=== PATIENT | female | born 2000 | race Caucasian/White ===

== ENCOUNTER 2020-07-21 22:03 | Emergency (ER) | payer OTHER, SELFPAY ==
--- NOTE | ~2020-07-21 | XR_ITS ---
EXAMINATIONS: FINGER 3 VIEWS, LEFT AND LEFT HAND AND WRIST 3 VIEWS CLINICAL INFORMATION: [facility] COMPARISON: None. TECHNIQUE: A PA view of the left hand is provided along with two views of the fourth digit. PA, lateral, oblique views of the left hand and wrist are provided. FINDINGS: There is mild soft tissue swelling to the fourth digit. There are no fractures or dislocations. The proximal carpal row is intact. XR/XR finger LT min 2V IMPRESSION: Mild soft tissue swelling to the fourth digit. No fracture or dislocation demonstrable.
--- NOTE | ~2020-07-21 | XR_ITS ---
EXAMINATIONS: FINGER 3 VIEWS, LEFT AND LEFT HAND AND WRIST 3 VIEWS CLINICAL INFORMATION: [facility] [place] COMPARISON: None. TECHNIQUE: A PA view of the left hand is provided along with two views of the fourth digit. PA, lateral, oblique views of the left hand and wrist are provided. FINDINGS: There is mild soft tissue swelling to the fourth digit. There are no fractures or dislocations. The proximal carpal row is intact. XR/XR hand wrist LT IMPRESSION: Mild soft tissue swelling to the fourth digit. No fracture or dislocation demonstrable.
[2020-07-21 22:07] VITALS: BP 132/83; PULSE 86; RESP 18; TEMP 36.7; O2SAT 99; BMI 40.1
[2020-07-21 23:52] VITALS: BP 124/77; PULSE 98; RESP 16; O2SAT 98
--- NOTE | 2020-07-22 01:11 | ED.WOUNDLAC ---
HPI - Wound/Laceration General Chief Complaint: Wound/Laceration Stated Complaint: FINGER INJ Time Seen by Provider: 07/21/20 23:52 Source: patient Mode of arrival: ambulatory Limitations: no limitations History of Present Illness HPI narrative: Left finger laceration. Patient states she was cutting with the knife in her kitchen and accidently cut herself. patient denies any other trauma. patient has complete range of motion of finger Related Data Allergies Allergy/AdvReac Type Severity Reaction Status Date / Time bve [BEV] Allergy Unknown UNKNOWN Verified 07/21/20 22:07 Review of Systems Review of Systems: Yes all other systems are reviewed and are negative Constitutional: Constitutional: Reports as per HPI and Reports no additional constitutional complaints Eyes: Eyes: Reports as per HPI and Reports no additional eye complaints ENT: Reports system reviewed and no additional complaints, except as documented and Reports as per HPI Cardiovascular: Cardiovascular: Reports as per HPI and Reports no additional cardiovascular complaints Respiratory: Respiratory: Reports as per HPI and Reports no additional respiratory complaints Gastrointestinal: Gastrointestinal: Reports as per HPI and Reports no additional gastrointestinal complaints Genitourinary: Genitourinary: Reports no additional female genitourinary complaints and Reports as per HPI Musculoskeletal: Musculoskeletal: Reports no additional musculoskeletal complaints and Reports as per HPI Comments: Left ring finger laceration Neurologic: Reports system reviewed and no additional complaints, except as documented and Reports as per HPI Psychiatric: Psychiatric: Reports no additional psychiatric complaints and Reports as per HPI PMF Social History Social History Smoking Status: Never smoker Use of substances other than those prescribed or required for medical reasons: Yes Substance Use Type: Marijuana Advance Directives: No Physical Exam Vital Signs: Vital Signs: Last Vital Signs Temp 98.1 F 07/21/20 22:07 Pulse 98 07/21/20 23:52 Resp 16 07/21/20 23:52 BP 124/77 07/21/20 23:52 Pulse Ox 98 07/21/20 23:52 Body Mass Index 40.1 Const: General: cooperative, healthy appearing, comfortable, no acute distress, well developed and alert HENMT: Head: Yes normal to inspection, Yes No palpable skull fracture present, Yes normocephalic, Yes atraumatic and Yes abrasion Eyes: General: appearance normal, both eyes and all related structures Neck: Neck: Yes normal visual inspection, Yes full ROM, Yes no lymphadenopathy, Yes no meningeal signs, Yes trachea midline, Yes supple and No tender Chest: Chest palpation & inspection: normal inspection of the chest and normal palpation of entire chest wall Resp: Effort & Inspection: normal respiratory effort and able to speak in complete sentences Auscultation: clear to auscultation bilaterally Cardio: Jugular venous distension: no JVD Heart sounds: S1 normal heart sound present and S2 normal heart sound present GI: Inspection: Yes normal to inspection and No abdominal wall ecchymosis Palpation (GI): Soft to palpation, not firm, nontender, no guarding and not rigid : General: No CVA tenderness Back/Spine/Pelvis: Back: no CVA tenderness, No CVA tenderness and No back tenderness Neuro: General: no meningeal signs Extrem: Other: Left hand: Left ring some very superficial avulsion. Negative for any bone exposure. Negative for signs of tendon injury. Patient flex and extend finger. All fingers have normal range of motion. All fingers capillary refills intact. Neuro exam is intact Psych: Appearance: grossly normal, well kempt and not disheveled Course Course Course Narrative: superficial avulsion Reevaluation(s) Reevaluation #1: Xray negative for bone fracture. Wound clean and surgical cell placed on wound. No laceration needed. Tdap was offered to patient, patient refused. Patient states she recently had Josefa J vaccine for COVID on the 18 of july. I spoke with pharmacist on-call who states although COVID vaccine usually should not be mixed with other vaccines, but with tetanus there can be exception due benefit outweigh the risk. He States literature states that for tetanus recommended that is given even if pATIENT just recently received COVID vaccine due to risk of having tetanus. I looked up CDC guidelines for Tushar Tushar vaccine with sets no other vaccine should be given at least for 14 days since receiving COVID vaccine. Both information was discussed with patient and informed her of what the pharmacist stated and CDC guidelines. Patient states she would preferred not to take the tetanus vaccine knowning the risk of possibly getting tetanus which can leads to . Patient states she would hold off on the tetanus vaccine and call her PCP. Patient informed to call her PCP immediately if she changes her mind to get the vaccine immediately or come to the ED. MDM - Wound/Laceration MDM Narrative Medical decision making narrative: sking superificial Avulsion Discharge Plan Discharge Clinical Impression: Avulsion of skin Patient Disposition: Home, Self-Care Instructions: Skin Avulsion (ED) Additional Instructions: Return to the ED immediately for redness, swelling, pus discharge, foul odor, fever, chills, or any other concerning symptoms. Since you did not want to take the Tdap vaccine during our ED visit, please call your PCP immediately if you changes mind to received a tetanus shot as soon as possible. Stand Alone Forms: Work/School Release Interventions: ED Discharge Assessment Last Done: 07/22/20 01:35 Discharge Date/Time: 07/22/20 01:36 Print Language: Palauan
== END 2020-07-22 01:36 | disposition home or self-care (01) ==
PROVIDERS: Emergency Provider Emergency Medicine
DX: S61.215A Laceration without foreign body of left ring finger without damage to nail, initial encounter (principal); W26.0XXA Contact with knife, initial encounter; Y93.G1 Activity, food preparation and clean up; Y92.010 Kitchen of single-family (private) house as the place of occurrence of the external cause; Y99.9 Unspecified external cause status
CPT/HCPCS: 73110; 73130; 73140; 90471; 99284

== ENCOUNTER 2024-11-29 10:49 | Emergency (ER) | payer OTHER, SELFPAY ==
--- NOTE | ~2024-11-29 | US_ITS ---
EXAMINATION: US PELVIS CLINICAL INFORMATION: Abnormal uterine bleeding, pain, concern for hemorrhagic cyst COMPARISON: None available. TECHNIQUE: Ultrasound of the pelvis is performed using both transabdominal and transvaginal transducers along with Doppler. Transvaginal imaging is performed due to inadequate visualization transabdominally. FINDINGS: Uterus: The uterus is anteflexed and measures 7.7 x 3.8 x 5.8 cm. The double wall endometrial thickness is 5 mm. There is lobulation of the posterior upper body of the uterus from a subserosal leiomyoma. There are also hypoechoic areas in the uterine body from leiomyomas. Submucosal leiomyoma in the anterior upper body of the uterus measures 5 x 3 x 4 mm. Posterior mid body intramural leiomyoma measures 6 x 5 x 7 mm. Posterior upper body subserosal leiomyoma measures 17 x 14 x 17 mm. Adnexa: Right ovary is nonvisualized Left ovary measures 2.7 x 2.3 x 2.1 cm. US/US pelvic and transvaginal IMPRESSION: 3 uterine leiomyomas are demonstrated, including a submucosal fibroid along the anterior upper uterine canal. Electronically signed by: Baldemar Wright MD 11/29/2024 03:40 PM EDT
[2024-11-29 10:54] VITALS: BP 130/86; PULSE 96; RESP 18; TEMP 36.4; O2SAT 95; BMI 47.2
[2024-11-29 11:38] LABS: MANUAL DIFF FLAG NO
[2024-11-29 11:39] LABS: Hematocrit 43.5 % (37.0-47.0); Hemoglobin 14.1 g/dl (12.0-16.0); Imm Gran Abs Auto 0.02 X10*3/uL (0.00-0.03); Imm Gran Pct Auto 0.3 % (0.0-0.4); Lymphocytes Absolute Auto 2.4 X10*3/uL (1.2-4.9); Mean Corpuscular HGB Conc 32.4 g/dl (31.0-35.0); Mean Corpuscular Hemoglobin 25.6 pg (27.0-33.0); Mean Corpuscular Volume 79.1 fL (80.0-98.0); NRBC Abs Auto 0.000 X10*3/uL (0.0-0.012); NRBC Pct Auto 0.0 /100WBC (0.0-0.2); Platelet Count 319 X10*3/uL (160-400); Red Blood Count 5.50 X10*6/uL (4.20-5.50); White Blood Count 7.2 X10*3/uL (4.8-10.8)
--- NOTE | 2024-11-29 11:47 | ED_ITS ---
HPI - General Adult General Chief complaint: Abdominal Pain Stated complaint: Low Abd Pain Time Seen by Provider: 11/29/24 11:46 Source: patient and family (patient's Dante) Mode of arrival: ambulatory Limitations: no limitations History of Present Illness ED Provider: Mariana Bruner PA-C HPI narrative: Patient is a 24 year old assigned female at with a history of PCOS on OCP presenting to the emergency department today with lower abdominal pain and heavy vaginal bleeding. Patient states that she has been having lower abdominal pain with significant vaginal bleeding - soaking 1 super+ tampon an hour. Patient states that this is her second period of the month and that she attempted to go into an urgent care but they recommended she come to the ER. Patient denies any other complaints at this time. Relieving factors: none Exacerbating factors: none Associated symptoms: denies other symptoms Treatments prior to arrival: none Related Data Allergies Allergy/AdvReac Type Severity Reaction Status Date / Time bev (BEV) Allergy Unknown UNKNOWN Verified 11/29/24 10:57 Review of Systems 2 Constitutional: Constitutional: Reports as per HPI Eyes: Eyes: Reports as per HPI ENT: Reports as per HPI Cardiovascular: Cardiovascular: Reports as per HPI Respiratory: Respiratory: Reports as per HPI Gastrointestinal: Gastrointestinal: Reports abdominal pain Genitourinary: Comments: vaginal bleeding Musculoskeletal: Musculoskeletal: Reports as per HPI Integumentary/Breasts: Skin/Breast: Reports as per HPI Neurologic: Reports as per HPI Psychiatric: Psychiatric: Reports as per HPI Endocrine: Endocrine: Reports as per HPI Hematologic/Lymphatic: Hematologic/Lymphatic: Reports as per HPI Allergic/Immunologic: Allergic/Immunologic: Reports as per HPI [facility] Past Medical History Attestation statement: The following information was validated with the patient. Source: old records reviewed and nursing notes reviewed Social History Social History Smoked in Last 30 Days: No Use of substances other than those prescribed or required for medical reasons: No Substance Use Type: Marijuana Advance Directives: No Advance Directives Information Provided: Yes Patient : No Physical Exam ED Vital Signs: Vital Signs - 24 hr 11/29/24 10:54 11/29/24 11:54 11/29/24 14:09 Temperature 97.5 F 98.2 F Pulse Rate 96 74 75 Respiratory Rate 18 18 16 Blood Pressure 130/86 108/69 Pulse Oximetry 95 100 99 Oxygen Delivery Method Room Air Room Air Room Air 11/29/24 14:11 11/29/24 16:06 Temperature Pulse Rate 84 Respiratory Rate 18 Blood Pressure 122/77 116/76 Pulse Oximetry 99 Oxygen Delivery Method Room Air BMI result Body Mass Index 47.2 Const General: cooperative, no acute distress, alert and awake Nutritional Appearance: well nourished Orientation/consciousness: patient oriented x3 HENMT Head: Yes normal to inspection and Yes atraumatic Ears: hearing grossly normal bilaterally and external ears normal General nose exam: Normal external nose present, no nasal discharge noted and no epistaxis Face and sinus: Yes normal facial exam, No abrasion and No laceration Mouth: Normal oral and palatal mucosa present, no drooling and no muffled voice Eyes General: appearance normal, both eyes and all related structures Periorbital: periorbital findings normal Eyelids: Yes eyelids normal Conjunctivae: conjunctivae normal Pupils: Equal, round and reactive pupils present EOM: EOMs intact bilaterally Neck Neck: Yes normal visual inspection and Yes full ROM Resp Effort & Inspection: normal respiratory effort and able to speak in complete sentences Neuro General: patient oriented x3, moves all extremities and CN's II-XI intact bilaterally Cranial nerves: Yes Equal, round and reactive pupils present Cognition (Neuro): normal cognition Extrem General: Yes normal to inspection, Yes full ROM and Yes capillary refill normal Psych Appearance: grossly normal Mental Status: mental status grossly normal Affect: normal affect Attitude: cooperative Thought process: Normal thought process present Thought content: Normal thought content present Insight: Good insight present (Psych) Medications Administered Discontinued Medications Generic Name Dose Route Start Last Admin Trade Name Mary PRN Reason Stop Dose Admin Ketorolac Tromethamine 15 mg 11/29/24 11:57 11/29/24 13:28 Ketorolac Tromethamine 15 Mg/Ml Vial IVPUSH 11/29/24 11:58 15 mg ONCE ONE Administration Medical Decision Making Medical Decision Making [facility] Narrative: Patient is a 24 year old assigned female at with a history of PCOS on OCP presenting to the emergency department today with lower abdominal pain and heavy vaginal bleeding. Patient's physical exam was unremarkable. Patient's blood work was unremarkable. Patient's urine showed no acute infection. Patient's pelvic / transvaginal US showed evidence of uterine fibroids which is the likely source of the patient's increased bleeding + pain. I explained my physical exam findings as well as all test results to the patient and the patient's . I answered all questions asked by the patient and the patient's . I stressed the importance of the patient taking her medication as directed (either prescribed or as the over the counter packaging recommends). I stressed the importance of the patient following up with her primary care provider and an OBGYN. I stressed the importance of the patient returning to the emergency department immediately if her symptoms were to worsen or if she were to develop any dizziness, shortness of breath, difficulty breathing, chest pain, blurry vision, loss of vision, nausea, vomiting, abdominal pain, fever, chills, back pain, or any other complaints. Patient and the patient's verbalized agreement and understanding with this treatment plan and discharge. Differential Diagnosis Differential Diagnoses: The differential diagnosis associated with the presentation includes Abdominal pain Uterine fibroids Abnormal uterine bleeding Admission/Observation Consideration of admission/observation: Escalation of care including admission/observation considered Patient would have been admitted to the hospital had her work up had any findings where hospital admission was appropriate and her clinical presentation warranted hospital admission. Lab Data [facility] Lab Attestation statement: I reviewed the patient's lab results. My interpretation of these results are in the [facility] Rationale portion of this note. 11/29/24 11:26 11/29/24 11:26 Labs: Lab Results 11/29/24 11/29/24 11/29/24 Range/Units 11:26 11:31 14:17 WBC 7.2 (4.8-10.8) X10*3/uL RBC 5.50 (4.20-5.50) X10*6/uL Hgb 14.1 (12.0-16.0) g/dl Hct 43.5 (37.0-47.0) % MCV 79.1 L (80.0-98.0) fL MCH 25.6 L (27.0-33.0) pg MCHC 32.4 (31.0-35.0) g/dl RDW 15.2 (11.0-16.0) % Plt Count 319 (160-400) X10*3/uL MPV 9.4 (9.4-12.3) fL Immature Gran % (Auto) 0.3 (0.0-0.4) % Neut % (Auto) 56.7 (45-73) % Lymph % (Auto) 33.4 (20-40) % Sully % (Auto) 6.6 (2-11) % Eos % (Auto) 2.2 (0-4) % Baso % (Auto) 0.8 (0-2) % Lymph # (Auto) 2.4 (1.2-4.9) X10*3/uL Sully # (Auto) 0.5 (0.1-1.2) X10*3/uL Eos # (Auto) 0.2 (0.0-0.4) X10*3/uL Baso # (Auto) 0.1 (0.0-0.2) X10*3/uL Abs Immat Gran (auto) 0.02 (0.00-0.03) X10*3/uL Absolute Neuts (auto) 4.1 (2.0-8.3) x10*3/uL Absolute Nucleated RBC 0.000 (0.0-0.012) X10*3/uL Nucleated RBC % (auto) 0.0 (0.0-0.2) /100WBC Sodium 141 (135-145) mmol/L Potassium 3.8 (3.3-5.1) mmol/L Chloride 106 (96-108) mmol/L Carbon Dioxide 27 (22-29) mmol/L Anion Gap 12 (12-20) BUN 13 (9-16) mg/dL Creatinine 0.75 (0.5-1.4) mg/dL Estim Creat Clear Calc 148.4 Estimated GFR > 60 Random Glucose 86 (60-115) mg/dL Calcium 9.3 (8.4-10.2) mg/dL Total Bilirubin 0.4 (0.0-1.0) mg/dL AST 17 (5-31) U/L ALT 17 (0-31) U/L Alkaline Phosphatase 52 (39-117) U/L Total Protein 7.4 (6.5-8.0) g/dL Albumin 4.5 (3.5-5.0) g/dL Beta HCG, Quant < 2 mIU/mL Urine Color Yellow Urine Appearance Clear Urine pH 6.5 (5.0-9.0) Ur Specific Free Soil 1.010 (1.005-1.025) Urine Protein Negative (Neg-Trace) mg/dL Urine Glucose (UA) Negative (Negative) mg/dL Urine Ketones Negative (Negative) mg/dL Urine Blood Trace H (Negative) Urine Nitrite Negative (Negative) Ur Leukocyte Esterase Negative (Negative) Urine RBC 0-2 (0-2) /HPF Urine WBC 0-5 (0-5) /HPF Ur Squamous Epith Cells 0-2 (0-2) /HPF Urine Bacteria None Seen (None Seen) Hyaline Casts 0-2 (0-2) /LPF Blood Type A Positive Antibody Screen NEGATIVE Independent Interpretation I performed an independent interpretation of an: Ultrasound Interpretation: My interpretation is in agreement with the radiologist's impression of this imaging study. L EXAMINATION: US PELVIS CLINICAL INFORMATION: Abnormal uterine bleeding, pain, concern for hemorrhagic cyst COMPARISON: None available. TECHNIQUE: Ultrasound of the pelvis is performed using both transabdominal and transvaginal transducers along with Doppler. Transvaginal imaging is performed due to inadequate visualization transabdominally. FINDINGS: Uterus: The uterus is anteflexed and measures 7.7 x 3.8 x 5.8 cm. The double wall endometrial thickness is 5 mm. There is lobulation of the posterior upper body of the uterus from a subserosal leiomyoma. There are also hypoechoic areas in the uterine body from leiomyomas. Submucosal leiomyoma in the anterior upper body of the uterus measures 5 x 3 x 4 mm. Posterior mid body intramural leiomyoma measures 6 x 5 x 7 mm. Posterior upper body subserosal leiomyoma measures 17 x 14 x 17 mm. Adnexa: Right ovary is nonvisualized Left ovary measures 2.7 x 2.3 x 2.1 cm. US/US pelvic and transvaginal IMPRESSION: 3 uterine leiomyomas are demonstrated, including a submucosal fibroid along the anterior upper uterine canal. Electronically signed by: Baldemar Wright MD 11/29/2024 03:40 PM EDT Dictated By: Baldemar Wright MD Signed By: Electronically signed by Baldemar Wright MD 11/29/24 0865 Radiology Impression Discussion of test interpretation with radiology: I have reviewed the radiologist's reading. Independent Historian Clinical information obtained from an independent historian. History obtained from or confirmed by: Spouse (Patient's Peter provided additional history and confirmed the history provided by the patient. ) Discharge Plan Discharge Clinical Impression: Fibroid, uterine, Abnormal uterine bleeding Patient Disposition: Home, Self-Care Instructions: Uterine Fibroids (ED), Menorrhagia (ED) Additional Instructions: Your ultrasound showed evidence of uterine fibroids. Specifically 3 of them with a submucosal one along the anterior upper uterine canal. It is crucial you follow up with this with your OBGYN. IF you are prescribed home medications and/or you are taking over the counter medications at home - it is very important you continue to do so as prescribed / directed unless told otherwise. Follow up with a primary care provider. Return to the emergency department immediately if your symptoms worsen or if you develop any numbness, tingling, dizziness, shortness of breath, difficulty breathing, chest pain, blurry vision, loss of vision, nausea, vomiting, abdominal pain, fever, chills, back pain, or any other complaints. L If you do not have a primary care provider - call any of the below numbers to establish and follow up with a primary care provider. [facility] Primary Care ([place]) [phone] [place] [address], [address] [facility] Primary Care ([address] [place]) [phone] [place] [address], [address] [facility], [address] [facility] Primary Care ([address] [place]) [phone] [place] [address], [address] [facility], [address] [facility] Primary Care ([place]) [phone] [place] [address], [address] [facility], [address] [facility] Family Medicine [phone] [address] [facility], [address] Please see the information below about our Patient Portal. If you are not yet enrolled in the [facility] Patient Portal, you will receive an enrollment email invitation following your visit to any [facility] care setting. You may also self-enroll in the Patient Portal by visiting our website: [email or web address] The following information is required to access the Patient Portal: - Your [facility] Medical Record Number - Your personal home email address (must match what is in your electronic medical record, Registration staff can assist with this) - Name - Date of Capabilities of the Patient Portal: - Message some providers - View upcoming appointments - Access your health summary, medical history, and visit history - View current conditions and allergies - View procedure and lab results - View your medications, including guidelines, side effects, and precautions - Complete pre-appointment questionnaires requested by your provider - Ready summary reports of your office visits and procedures To access the Patient Portal Mobile [employer], follow these directions: - Search [employer] in the [employer] Store or [employer] Store - Download the Jeremy - Search for [facility] - Enter your login/password Print Language: Sinhala
--- OUTSIDE RECORDS SUMMARY | 2024-11-29 11:49 | XMS_ITS | Clinical Summary ---
Author Organization [facility] Address [address] [place] [id number] Phone Care Team Providers Care Telephone Maintenance Mechanic Name Role Phone Pcp, Unknown Primary Care Provider Unavailabl e Allergies Active Allergy Reactions Criticality Noted Date Comments Jeffrey 12/09/2020 Medications EPINEPHrine 0.3 mg/0.3 mL auto-injector Inject 0.3 mL (0.3 mg total) into the muscle as needed for anaphylaxis . 1 each 08/11/2024 Active Active Problems Problem Noted Date Diagnosed Date Lower abdominal pain 11/29/2018 Right upper quadrant abdominal pain 11/27/2018 Right lower quadrant abdominal pain 11/27/2018 Social History Tobacco Use Types Packs/Day Years Used Date Smoking Tobacco: Never Smokeless Tobacco: Never Alcohol Use Standard Drinks/Week Comments Yes 0 (1 standard drink = 0.6 oz pur e alcohol) very rare Education Answer Date Recorded Are you interested in more education? Not on maty e 08/05/2022 Are you concerned about learning? Not on file 08/05/2022 No 08/05/2022 No 08/05/2022 Food Answer Date Recorded Within the past 6 months we worried whether our food would run out before we got money to buy more. Never True 08/11/2024 Within the past 6 months the food we bought just didn't last and we didn't have enough money to get more. Never True Residential Stability Answer Date Recor ded What is your housing situation today? I have olivia sing 08/11/2024 How many times have you move d in the past 12 months? Zero (I did not move) 08/11/2024 Paying for Meds Answer Date Recorded Do you have trouble paying for medicines? No 08/11/2024 Paying Utility Bills Answer Date Record ed Do you have trouble paying your heating or elect ricity bill? No 08/11/2024 Transportation Answer Date Recorded Has the lack of transportati on kept you from medical appointments or from getting medications? No 08/11/2024 Digital Access Answer Date Recorded No 08/11/2024 Yes 08/11/2024 Do you have reliable internet access at home? Ye s 08/11/2024 Do you have a device (e.g., phone, tablet, computer) with a working camera? Yes 08/11/2024 Intimate Partner Violence Answer Date R ecorded Are you denied basic needs s uch as food, clothing, or medical care? No 08/11/2024 In the past 12 months have y ou been in a relationship with a person who hurts, threatens, or tries to control you? No 08/11/2024 Are you denied basic needs s uch as food, clothing, or medical care? No 08/11/2024 In the past 12 months have y ou been in a relationship with a person who hurts, threatens, or tries to control you? No 08/11/2024 Comments Unknown Sex and Gender Information Value Date Recorded Sex Assigned at Not on file Legal Sex Female 2:34 PM EDT Gender Identity Not on file Sexual Orientation Not on file Last Filed Vital Signs Vital Sign Reading Time Taken Comments Blood Pressure 122/78 08/11/2024 10:27 PM EDT Pulse 100 08/11/2024 10:27 PM EDT Temperature 36.5 C (97.7 F) 08/11/2024 10:27 PM EDT Respiratory Rate 20 08/11/2024 10:27 PM EDT Oxygen Saturation 99% 08/11/2024 10:27 PM EDT Inhaled Oxygen Concentration - - Weight 129.3 kg (285 lb) 09/29/2021 9:49 PM EDT Height 177.8 cm (5' 10 ) 09/29/2021 9:49 PM EDT Body Mass Index 40.89 09/29/2021 9:49 PM EDT Plan of Treatment Health Maintenance Due Date Last Done Comments DEPRESSION SCREENING 2010 HEPATITIS C SCREENING 2016 HIV ONE-TIME SCREENING (18-65 YEARS) 2016 PAP SMEAR 09/24/2019 COVID-19 VACCINE (2023- season) 2023 07/18/2020 SMOKING STATUS SCREENING (Once After 26 Yrs) 2024 Adult Td,Tdap Booster 08/04/2030 08/04/2020, 010 HIB VACCINES Completed 04/05/2000, 03/11, 02/05/1999, Additional history exists HPV VACCINES Completed 11/12/2015, 10/23/2009 MENINGOCOCCAL VACCINES (ACWY) Completed 11/12/2015, 10/23/2009 HEPATITIS A VACCINES Aged Out No long er eligible based on patient's age to complete this topic MENINGOCOCCAL VACCINES (B) Aged Out N o longer eligible based on patient's age to complete this topic PNEUMOCOCCAL VACCINES (0-49 years) Aged Out No longer eligible based on patient's age to complete this topic Medical Devices Not on file Insurance [employer] O POS EPO [employer] [facility] POS [facility] [employer] HMO POS EPO Care Teams Telephone Maintenance Mechanic Relationship Specialty Start Date End Date Pcp, Unknown PCP - General 08/11/24 Additional Source Comments The information contained in this document represents components of the legal health record. It is not the complete legal health record.[facility]
[2024-11-29 11:54] VITALS: BP 108/69; PULSE 74; RESP 18; TEMP 36.8; O2SAT 100
[2024-11-29 12:02] LABS: Alanine Aminotransferase 17 U/L (0-31); Albumin Level 4.5 g/dL (3.5-5.0); Alkaline Phosphatase 52 U/L (39-117); Anion Gap 12 (12-20); Aspartate Amino Transferase 17 U/L (5-31); Blood Urea Nitrogen 13 mg/dL (9-16); Calcium 9.3 mg/dL (8.4-10.2); Carbon Dioxide 27 mmol/L (22-29); Chloride 106 mmol/L (96-108); Creatinine Clr Calc Pharmacy 148.4; Estimated Glomerular Filt Rate > 60; Potassium 3.8 mmol/L (3.3-5.1); Sodium 141 mmol/L (135-145); Total Protein 7.4 g/dL (6.5-8.0)
[2024-11-29 14:09] VITALS: PULSE 75; RESP 16; O2SAT 99
[2024-11-29 14:11] VITALS: BP 122/77
[2024-11-29 14:35] LABS: Appearance Urine Clear; Glucose Urine UA Negative (Negative); PH 6.5 (5.0-9.0); Specific Gravity - Urine 1.010 (1.005-1.025); UMIC TRIGGER UACC YES
[2024-11-29 16:06] VITALS: BP 116/76; PULSE 84; RESP 18; O2SAT 99
[2024-11-29 17:00] VITALS: BP 119/68; PULSE 80; RESP 18; TEMP 36.2; O2SAT 100
== END 2024-11-29 17:05 | disposition home or self-care (01) ==
PROVIDERS: Emergency Provider Emergency Medicine
DX: D25.9 Leiomyoma of uterus, unspecified (principal); R10.2 Pelvic and perineal pain; N93.9 Abnormal uterine and vaginal bleeding, unspecified
CPT/HCPCS: 36415; 76830; 76856; 80053; 81001; 84702; 85025; 86850; 86900; 86901; 96374; 99284; J1885

== ENCOUNTER → 2024-11-29 11:57 | Outpatient (BNV) | payer OTHER, SELFPAY | PROVIDERS: Visit Provider Radiology Diagnostic Radiology | DX: D25.9 Leiomyoma of uterus, unspecified (principal) | CPT/HCPCS: 76830; 76856 ==